=== PATIENT | female | born 1945 | race Caucasian/White ===

== ENCOUNTER 2018-09-13 11:53 | Outpatient (CLI) | payer MEDICARE, OTHER, SELFPAY ==
[2018-09-13 12:57] LABS: Bilirubin Negative (Negative); Blood Trace-intact (Negative); Clarity Clear; Glucose Negative (Negative); Ketones Negative (Negative); Leukocyte Esterase Negative (Negative); Nitrite Negative (Negative); Specific Gravity 1.015 (1.005-1.025); Urobilinogen 0.2 EU/dL (Up TO 0.2); pH 5.5 (5-8)
[2018-09-13 12:59] LABS: HCT 44.2 % (36.0-46.0); HGB 14.4 g/dL (12.0-15.5); Mean Corp. HGB Concentration 32.6 g/dL (32.0-36.0); Mean Corpuscular Hemoglobin 28.9 pg (27.0-33.0); Mean Corpuscular Volume 88.6 fL (80-95); Mean Platelet Volume 10.8 fL (8.0-11.0); Platelet Count 254 x1000/uL (130-400); RBC 4.99 m/cumm (4.00-5.20); RBC Distribution Width 13.3 % (11.7-14.6); White Blood Cell Count 7.94 k/cumm (4.4-10.8)
[2018-09-13 13:32] LABS: ALT 16 U/L (12-78); AST 19 U/L (15-37); Alkaline Phosphatase 55 U/L (46-116); Anion Gap 7.4 mmol/L (3-11); BUN 15 mg/dL (7-18); Bilirubin, Total 0.4 mg/dL (0.2-1.0); CO2 29.6 mmol/L (21.0-32.0); CREATININE 0.65 mg/dL (0.55-1.02); Calcium 10.1 mg/dL (8.5-10.1); Chloride 106 mmol/L (98-107); Cholesterol 288 mg/dL (50-200); Glucose 98 mg/dL (70-100); HDL Cholesterol 64 mg/dL (40-60); LDL CHOLESTEROL 184 mg/dL (<100); Potassium 4.9 mmol/L (3.5-5.1); Sodium 143 mmol/L (136-145); TSH (W/Ref FT4) 1.11 uIU/mL (0.358-3.74); Total Protein 7.6 g/dL (6.4-8.2); Triglyceride 162 mg/dL (30-150)
[2018-09-13 13:54] LABS: Bacteria Negative HPF (Negative); C & S Indicated? No; Casts Negative LPF (Negative); Crystals Negative HPF (Negative); Epithelial Cells Negative HPF (Negative); Mucus Negative (Negative); Other Cells Rare Renal (Negative); RBC 0-2 (0-2); WBC 0-2 HPF (0-5)
[2018-09-13 14:15] LABS: ESR 18 MM/HR (0-30)
== END 2018-09-13 12:13 ==
PROVIDERS: PCP Family Medicine; Visit Provider Family Medicine
DX: R30.0 Dysuria (principal); E78.00 Pure hypercholesterolemia, unspecified; K21.9 Gastro-esophageal reflux disease without esophagitis; K29.70 Gastritis, unspecified, without bleeding; G43.909 Migraine, unspecified, not intractable, without status migrainosus; M79.602 Pain in left arm
CPT/HCPCS: 36415; 80053; 80061; 83721; 85027; 85652; 81003; 81015; 84443

== ENCOUNTER 2018-09-22 00:08 | Outpatient (CLI) | payer MEDICARE, OTHER, SELFPAY ==
--- NOTE | 2018-09-22 06:53 | MERGEMPI_ITS ---
*[facility]* *[facility]* [address] [place] [address] Myocardial Perfusion Imaging - SPECT Jeremiah protocol Date of study: 09/22/2018 *PATIENT PRESENTATION* Height: 152.4cm (60in) Blood Pressure: Weight: 53.6kg (118lb) BSA: 1.52m^2 Referring physician: Kwan Smith Ordering physician: Shanta Yarbrough Impressions: - Normal perfusion and contraction by Tc99m Sestamibi Imaging. - Frequent atrial ectopy. Summary: 1. Myocardial perfusion imaging: No myocardial perfusion defects noted. 2. The calculated left ventricular ejection fraction after stress: 75%. LV global systolic function is normal. No left ventricular regional motion abnormality. 3. Stress ECG conclusions: The stress ECG is negative. Frequent atrial ectopy. 4. Stress: There is a normal resting blood pressure with an appropriate response to stress. Dull ache chest pain at baseline, unchanged with exercise. Exercise capacity is normal for age. Indication: R07.9. History: REASON FOR VISIT: PT REPORTS EPIGASTRIC PAIN, LIGHTHEADEDNESS, PAIN IN THE MIDDLE OF HER BACK, NAUSEA AND SEEING SPOTS IN EYES FOR MONTHS. SHE ALSO REPORTS ACHING AND HEAVINESS IN HER LEFT ARM FOR THE PAST 1-2 MONTHS, SPONTANEOUS SWEATS AND SOB WHEN BENDING OVER. AT TODAY'S VISIT PT REPORTS A SUB STERNAL DULL ACHE THAT IS RADIATING TOWARDS HER BACK. SHE DESCRIBES THE BACK PAIN SHARP. PT ALSO REPORTS LEFT ARM HEAVINESS. PT RATES THIS DISCOMFORT A 3 OUT OF 10 SHE REPORTS ACTIVITY DOES NOT MAKE IT ANY WORSE. SHE REPORTS SHE EXERCISES ALL THE TIME. Risk factors: FATHER HAD A QUADRUPLE BIPASS IN HIS 80'S AND 2 YEARS LATER. Family history of coronary artery disease. Dyslipidemia. Cholesterol: 288mg/dl. HDL: 64mg/dl. LDL: 184mg/dl. Triglycerides: 162mg/dl. ALLERGIES: METRONIDAZOLE. PENICILLINS. SULFA. CLARITHROMYCIN. PANTOPRAZOLE. DOXYCYCLINE. CEFUROXIME. MEDICATIONS: ACETAMINOPHEN 500 MG DAILY PRN. CHOLECALCIFEROL 2,000 UNITS DAILY. GABAPENTIN 1 -3 CAPS TID PRN. IBUPROFEN 3 TABS PRN. PROAIR HFA 1 -2 PUFFS Q 6 HRS PRN. Imaging Technique: Protocol: Jeremiah protocol. Acquisition: Gated SPECT; 1 day - rest/stress. The patient was imaged in the supine position. Attenuation correction used. Isotope administration: - Rest. Tc[99m]-sestamibi. Dose: 10.1mCi. Injection time: 09:15 AM. Injection to stress time: 00:45. - Stress. Tc[99m]-sestamibi. Dose: 31mCi. Injection time: 11:00 AM. 1-2 min before end of exercise Baseline ECG: SINUS RHYTHM. HR 81 BPM. T-WAVES INVERTED IN LEAD V1. Stress protocol: + +---+ + !Stage !HR !BP (mmHg) ! + +---+ + !Baseline supine !81 !140/82 (101)! + +---+ + !Baseline standing !88 !140/80 (100)! + +---+ + !Stage I; 1.7mph, 10degrees; 3 min !138!150/72 (98) ! + +---+ + !Stage II; 2.5mph, 12degrees; 3 min!158!180/80 (113)! + +---+ + !Immediate post stress !135! ! + +---+ + !Recovery; 1 min !---!180/70 (107)! + +---+ + !Recovery; 3 min !106!162/76 (105)! + +---+ + !Recovery; 6 min !101!130/80 (97) ! + +---+ + * Stress results: Maximal heart rate during stress was 167bpm (112% of maximal predicted heart rate). The maximal predicted heart rate was 149bpm. There is a normal resting blood pressure with an appropriate response to stress. The rate-pressure product for the peak heart rate and blood pressure was 64761hy Hg/min. Dull ache chest pain at baseline, unchanged with exercise. Exercise capacity is normal for age. Stress ECG: TREADMILL PORTION OF STRESS TEST ENDED IN 6 MINUTES & 1 SECOND BECAUSE PATIENT REACHED 100% OF HER TARGET HR. NORMAL HEART RATE AND BLOOD PRESSURE RESPONSE TO EXERCISE. MAX HR = 167 % OF TARGET = 112 FREQUENT PACs. BURSTS OF SVT AT IMMEDIATE RECOVERY. APPROXIMATE METS ACHIEVED = 7.05 DULL ACHE IN CHEST RADIATING STRAIGHT THROUGH TO BACK ASSOCIATED WITH LEFT ARM HEAVINESS AT BASELINE. THIS CHEST DISCOMFORT DID NOT WORSEN WITH EXERCISE. BACK PAIN SUBSIDED WITH EXERCISE PER PT REPORT. NO SIGNIFICAN ST SEGMENT CHANGES. FREQUENT BRIEF INTERMITTENT BURSTS OF SVT NOTED FROM IMMEDIATE RECOVERY UP UNTILL 3 MINUUTES RECOVERY. AVERAGEFUNCTIONAL CAPACITY FOR EXERCISE. The stress ECG is negative. Frequent atrial ectopy. Multiple episodes of nonsustained supraventricular tachycardia. Myocardial perfusion: Imaging information: gated. Left ventricular size is normal. No myocardial perfusion defects noted. Ventricular Function (Wall Motion): The calculated left ventricular ejection fraction after stress: 75%. LV global systolic function is normal. No left ventricular regional motion abnormality. Study data: Kwan Smith MD supervised and was readily available during the procedure. This study was interpreted by [facility]. Study status: Routine. Consent: The risks, benefits, and alternatives to the procedure were explained to the patient and informed consent was obtained. Procedure: Initial setup. A baseline ECG was recorded. Surface ECG leads and manual cuff blood pressure measurements were monitored. Heart sounds: Normal. Lung sounds: Normal. Treadmill exercise testing was performed using the Jeremiah protocol. Study completion: All catheters inserted during the procedure were removed. The patient tolerated the procedure well and was discharged from the lab. Discharge: The patient left the laboratory in stable condition. Birthdate: Patient birthdate: 1945. Sex: Gender: female. Study date: Study date: 09/22/2018. Study time: 00:01 AM. Signature Documentation: - The imaging portion of this study was interpreted by Nuclear Post Doctoral Fellow Kwan Smith MD. - The Stress ECG portion of this study was interpreted by Kwan Smith MD. Electronically signed by Kwan Smith 09/22/2018 16:02
== END 2018-09-22 00:28 ==
PROVIDERS: PCP Family Medicine; Visit Provider Family Medicine
DX: R07.9 Chest pain, unspecified (principal); R06.02 Shortness of breath; R10.13 Epigastric pain; E78.5 Hyperlipidemia, unspecified; R42 Dizziness and giddiness
CPT/HCPCS: 78452; 93016; 93018; 93017

== ENCOUNTER 2018-09-26 00:38 | Outpatient (CLI) | payer MEDICARE, OTHER, SELFPAY ==
--- NOTE | 2018-09-26 09:24 | DI.US_ITS ---
SYMPTOMS/DIAGNOSIS: EPIGASTRIC PAIN, R10.13 ABDOMEN ULTRASOUND: Comparison is made with [id number]. The liver is normal in size and echogenicity. No focal liver lesions or biliary dilatation is seen. The gallbladder is unremarkable, without evidence of stones or wall thickening. A cyst is noted at the upper pole of the left kidney measuring 4.7 cm. No hydronephrosis or calculi are seen. The spleen is normal in size. The aorta is normal in diameter. There is no right upper quadrant fluid. IMPRESSION: No acute abnormality. Left renal cyst is again noted.
== END 2018-09-26 00:58 ==
PROVIDERS: PCP Family Medicine; Visit Provider Family Medicine
DX: R10.13 Epigastric pain (principal); N28.1 Cyst of kidney, acquired
CPT/HCPCS: 76700

== ENCOUNTER 2019-01-09 00:19 | Outpatient (CLI) | payer MEDICARE, SELFPAY ==
--- NOTE | 2019-01-09 12:27 | DI.MAMMO_ITS ---
SYMPTOMS/DIAGNOSIS: SCREENING, Z12.31 MAMMOGRAMS: Mammograms were interpreted according to the usual protocol including computer analysis with CAD system, tomosynthesis and C view imaging. The breast tissue is of moderate radiodensity. There is no dominant mass. There are no suspicious calcifications and there has been no significant interval change when compared with prior images. SUMMARY: No evidence of malignancy, category 1. Yearly screening mammography is recommended. Breast density category B. SA ASSESSMENT OF FINDINGS: Negative. Category 1. Patient will receive a letter notifying them of these results. BI-RADS category B. There are scattered areas of fibroglandular density.
== END 2019-01-09 00:39 ==
PROVIDERS: PCP Family Medicine; Visit Provider Family Medicine
DX: Z12.31 Encounter for screening mammogram for malignant neoplasm of breast (principal)
CPT/HCPCS: 77063; 77067

== ENCOUNTER 2020-08-01 08:14 | Outpatient (CLI) | payer MEDICARE, SELFPAY ==
[2020-08-02 15:32] LABS: COVID-19 RT-PCR UVMMC Result Negative (Negative)
== END 2020-08-01 08:34 ==
PROVIDERS: PCP Family Medicine; Visit Provider Family Medicine
DX: Z20.828 Contact with and (suspected) exposure to other viral communicable diseases (principal)
CPT/HCPCS: U0003

== ENCOUNTER 2020-08-21 01:21 | Outpatient (CLI) | payer MEDICARE, OTHER, SELFPAY ==
--- NOTE | 2020-08-21 06:30 | DI.US_ITS ---
EXAM: US ABDOMEN CLINICAL HISTORY: epigastric ABD PAIN,R10.9 TECHNIQUE: Ultrasound of complete upper abdomen performed using standard protocol. COMPARISON: US US ABDOMEN from 09/26/2018 FINDINGS: There is no ascites evident. LIVER: There are no hepatic lesions evident nor obvious dilatation of intrahepatic ducts. GALLBLADDER/BILIARY: There are no gallstones. No gallbladder wall edema nor pericholecystic fluid. The common hepatic duct isnot dilated, measuring 3-4mm at the level of juan hepatis. PANCREAS: There is no evidence of pancreatic mass nor dilatation of the pancreatic duct. SPLEEN: The spleen is not enlarged and there are no intrasplenic lesions evident. KIDNEYS:Right kidney appears unremarkable. Left kidney again exhibits a superior pole cyst which pre sently measures approximately 4.6 x 5.6 x 5.1 centimeter, exhibiting minimal change from the previous study. There appears to be mild mural calcification and mild internal septation. However, predomin ately cystic. Bosniak type 2 ABDOMINAL AORTA: Atherosclerotic but no aneurysm IVC: Normal diameter where visualized. IMPRESSION: 1. No evidence of cholelithiasis nor dilatation of the biliary tree. 2. 5.6 diameter Bosniak-type 2 left renal cystic structure noted, exhibiting minimal any significant change compared to ultrasound examination September 2018. Recommend continued periodic follow-up. 3. No other significant ultrasound findings in the upper abdomen and no ascites. DATA REPOSITORY:
== END 2020-08-21 01:41 ==
PROVIDERS: PCP Family Medicine; Visit Provider Family Medicine
DX: R10.13 Epigastric pain (principal); N28.1 Cyst of kidney, acquired
CPT/HCPCS: 76700

== ENCOUNTER 2021-08-21 10:50 | Outpatient (CLI) | payer MEDICARE, OTHER, SELFPAY ==
--- NOTE | 2021-08-21 10:45 | RT.EKG_ITS ---
APPROVED REPORT Exam: Resting ECG Reason for Exam: chest pain Patient Location: O HR:86 bpm ECG Measurements Heart Rate 86 AXIS SD 175 P 31 QRSd 87 QRS 14 QT 407 T 0 QTc 486 Conclusion Sinus rhythm...normal P axis, V-rate 60- 99 Normal Electrocardiogram
== END 2021-08-21 10:51 | disposition home or self-care (01) ==
LOC: DI.CM 10:51
PROVIDERS: PCP Family Medicine; Visit Provider Family Medicine
DX: R07.9 Chest pain, unspecified (principal)
CPT/HCPCS: 93010

== ENCOUNTER 2021-08-25 22:40 | Outpatient (CLI) | payer MEDICARE, OTHER, SELFPAY ==
--- NOTE | 2021-08-25 08:45 | DI.MAMMO_ITS ---
Exam(s) MAMMO SCREENING EXAM: MAMMO SCREENING CLINICAL HISTORY: screening, z12.39 TECHNIQUE: Mammograms were interpreted according to the usual protocol including computer analysis w [employer] CAD system, tomosynthesis and C-view imaging. COMPARISON: 2012 through 2018 FINDINGS: The breasts are composed of scattered fibroglandular densities, Breast Density category B. No suspicious masses or suspicious microcalcifications are seen. No skin thickening or abnormal axillary lymph nodes are seen. There has been no significant change from prior exams. IMPRESSION: BI-RADS Category 1, Negative mammogram Yearly screening mammography is recommended. Breast Density - Category B, scattered fibroglandular densities. A negative radiographic report should not delay biopsy if a dominant or clinically suspicious mass is present. Up to ten percent of cancers are not identified on mammography. A negative report may reinforce clinical impression. Adenosis and dense breasts may obscure an underlying neoplasm. False positive reports average 6 to 10%. Patient will receive a letter notifying them of these results.
== END 2021-08-25 23:00 ==
PROVIDERS: PCP Family Medicine; Visit Provider Family Medicine
DX: Z12.31 Encounter for screening mammogram for malignant neoplasm of breast (principal)
CPT/HCPCS: 77063; 77067

== ENCOUNTER 2021-09-01 14:55 | Emergency (ER) | payer MEDICARE, OTHER, SELFPAY ==
[2021-09-01] VITALS (12 sets, daily range): BP systolic 164–207; BP diastolic 85–90; PULSE 71–90; RESP 13–25; TEMP 37.4; O2SAT 96–99
--- NOTE | 2021-09-01 14:45 | RT.EKG_ITS ---
APPROVED REPORT Exam: Resting ECG Reason for Exam: Chest Pain Patient Location: E HR:91 bpm ECG Measurements Heart Rate [address] 171 P 34 QRSd 87 QRS 2 QT 384 T -3 QTc 471 Conclusion Sinus rhythm...normal P axis, V-rate 60- 99 Atrial premature complexes...SV complexes w/ short R-R intvls
--- NOTE | 2021-09-01 15:15 | DI.RAD_ITS ---
Exam(s) XR PORTABLE CHEST AP EXAM: XR PORTABLE CHEST AP CLINICAL HISTORY: PUI, CP, SOB TECHNIQUE: 2D digital imaging was performed of the chest. One image was obtained. An AP view was ob tained. COMPARISON: CR,RF BARIUM SWALLOW W PA LAT CXR from 01/09/2010 FINDINGS: MEDIASTINUM: Normal. HEART: Normal. PULMONARY VASCULATURE: Normal. LUNGS: Clear. PLEURAL SPACE: No pleural effusion or pneumothorax. BONE:Within normal limits for the patient's age. OTHER FINDINGS:Normal. IMPRESSION: No acute pulmonary findings. DATA REPOSITORY: RADIATION DOSE DELIVERED:
[2021-09-01 15:18] LABS: Abs Immature Grans 0.01 10^3/uL (0.0-0.06); Absolute Basophil Count 0.04 10^3/uL (0.0-0.2); Absolute Eosinophil Count 0.07 10^3/uL (0.0-0.7); Absolute Lymphocyte Count 1.78 10^3/uL (1.2-3.4); Absolute Monocyte Count 0.46 10^3/uL (0.1-0.8); Absolute Neutrophil Count 4.15 10^3/uL (1.2-6.7); Basophils % 0.6; Eosinophils % 1.1; HCT 48.5 % (36.0-46.0); HGB 15.5 g/dL (11.2-15.7); Immature Grans % 0.2; Lymphocytes % 27.3; MCH 28.5 pg (27.0-33.0); MCV 89.3 fL (80-95); MPV 10.3 fL (8.0-11.0); Monocytes % 7.1; Neutrophils % 63.7; Nucleated RBC 0 %; Platelet Count 279 10^3/uL (130-400); RBC 5.43 10^6/uL (3.93-5.22); RDW-SD 42.6 fL; WBC 6.51 10^3/uL (4.4-10.8)
--- NOTE | 2021-09-01 15:26 | ED.GENADUL_ITS ---
Discharge Plan Disposition Patient Disposition: HOME Condition: Stable Discharge Details Clinical Impression: Chest pain Primary Care Provider: Shanta Yarbrough ED Provider: Luanne Torres Home Meds and New Rx's Prescriptions: Continued famotidine 20 mg tablet 20 mg PO BID Qty: 60 RF: 2 sertraline 25 mg tablet 25 mg PO DAILY Qty: 30 RF: 1 No Action gabapentin [Neurontin] 300 mg capsule 900 mg PO TID PRN (Reason: trigeminal neuralgia) Qty: 90 RF: 0 pantoprazole [Protonix] 40 mg tablet,delayed release (DR/EC) 40 mg PO DAILY Qty: 30 RF: 1 ibuprofen 200 MG tablet 3 tab PO PRN RF: 0 Discharge Instructions Instructions: Chest Pain (ED) Additional Instructions: Workup shows no indication of heart damage as a cause for your chest pain. Please follow-up with your primary care provider as indicated. Follow up with primary care provider in 3-5 days. Return to ED sooner if any worsening or concerns. Increase oral fluids. Please take Tylenol or Ibuprofen with food every 4-6 hours as needed for pain and swelling. Referrals: Shanta Yarbrough MD, [place] [Primary Care Provider] - 3 days Discharge Data Discharge Date/Time-TO BE ENTERED AT DEPARTURE: 09/01/21 17:55 Medical Decision Making 36-year-old female presents with ER midsternal left-sided chest pain which has been getting worse for the last few weeks. She reports the radial her back. She has been seen by her clinic and has diagnosed with GERD as tried Protonix with little to no relief in place on Pepcid she also states has not helped. She also endorses some nausea, shortness of breath with exertion and a dry cough. Denies any vomiting or diarrhea. Denies any fever. She is vaccinated for COVID. She states that she does have a intermittent shooting pains into her left side of her chest. No significant past medical history. She has a history of vitamin D deficiency, osteoporosis, tubular adenoma of colon, interstitial cy stitis, GERD. She is not a smoker she does endorse occasional marijuana. Cardiac work-up ordered serial troponins, 324 mg aspirin. Covid swab ordered. CBC shows no leukocytosis, CMP largely within normal limits. Initial troponin within normal limits. D-dimer is 440. Covid is negative. MinimalEXAM: XR PORTABLE CHEST AP CLINICAL HISTORY: PUI, CP, SOB TECHNIQUE: 2D digital imaging was performed of the chest. One image was obtained. An AP view was obtained. COMPARISON: CR,RF BARIUM SWALLOW W PA LAT CXR from 01/09/2010 FINDINGS: MEDIASTINUM: Normal. HEART: Normal. PULMONARY VASCULATURE: Normal. LUNGS: Clear. PLEURAL SPACE: No pleural effusion or pneumothorax. BONE:Within normal limits for the patient's age. OTHER FINDINGS:Normal. IMPRESSION: No acute pulmonary findings. 1645: Patient reevaluation she is still complaining of some external burning rating 5 out of 10. Will order nitro. 1709: Patient reports no change in the chest pain however she is complaining of a headache and some nausea. Airway tissue l Tylenol Zofran and GI cocktail ordered which patient declined at this time Serial troponin came back negative patient discharged with home care follow-up and return instructions. This text was generated using Mobi dictation system, please disregard any oddities of phrase or misspellings. Lab Data Lab results reviewed: Yes I reviewed the patient's lab results. Lab results narrative: Laboratory Tests Range/Units 09/01/21 09/01/21 09/01/21 15:05 15:05 15:05 WBC (4.4-10.8) 10^3/uL 6.51 RBC (3.93-5.22) 10^6/uL 5.43 H Hgb (11.2-15.7) g/dL 15.5 Hct (36.0-46.0) % 48.5 H MCV (80-95) fL 89.3 MCH (27.0-33.0) pg 28.5 MCHC (32.0-36.0) % 32.0 RDW (11.7-14.6) % 13.0 Plt Count (130-400) 10^3/uL 279 MPV (8.0-11.0) fL 10.3 Immature Gran % 0.2 Neutrophils % 63.7 Lymphocytes % 27.3 Monocytes % 7.1 Eosinophils % 1.1 Basophils % 0.6 Nucleated RBC % % 0 Absolute Neutrophils (1.2-6.7) 10^3/uL 4.15 Absolute Lymphocytes (1.2-3.4) 10^3/uL 1.78 Absolute Monocytes (0.1-0.8) 10^3/uL 0.46 Absolute Eosinophils (0.0-0.7) 10^3/uL 0.07 Absolute Basophils (0.0-0.2) 10^3/uL 0.04 D-Dimer (<500) ng/mlFEU 440 Sodium (136-145) mmol/L 142 Potassium (3.5-5.1) mmol/L 3.5 Chloride (98-107) mmol/L 105 Carbon Dioxide (21.0-32.0) mmol/L 28.8 Anion Gap (3-11) mmol/L 8.2 BUN (7-18) mg/dL 18 Creatinine (0.55-1.02) mg/dL 0.7 Estimated GFR/1.73 m2 (mL/min/1.73m2) >= 60.00 Glucose (74-106) mg/dL 104 Calcium (8.5-10.1) mg/dL 10.2 H Magnesium (1.8-2.4) mg/dL 2.3 Total Bilirubin (0.2-1.0) mg/dL 0.4 AST (15-37) U/L 20 ALT (14-59) U/L 18 Alkaline Phosphatase (46-116) U/L 54 Troponin I (<or=60) ng/L < 50 Total Protein (6.4-8.2) g/dL 8.0 Albumin (3.4-5.0) g/dL 4.3 COVID-19 Source SARS-CoV-2 (PCR) (Negative) Range/Units 09/01/21 15:20 WBC (4.4-10.8) 10^3/uL RBC (3.93-5.22) 10^6/uL Hgb (11.2-15.7) g/dL Hct (36.0-46.0) % MCV (80-95) fL MCH (27.0-33.0) pg MCHC (32.0-36.0) % RDW (11.7-14.6) % Plt Count (130-400) 10^3/uL MPV (8.0-11.0) fL Immature Gran % Neutrophils % Lymphocytes % Monocytes % Eosinophils % Basophils % Nucleated RBC % % Absolute Neutrophils (1.2-6.7) 10^3/uL Absolute Lymphocytes (1.2-3.4) 10^3/uL Absolute Monocytes (0.1-0.8) 10^3/uL Absolute Eosinophils (0.0-0.7) 10^3/uL Absolute Basophils (0.0-0.2) 10^3/uL D-Dimer (<500) ng/mlFEU Sodium (136-145) mmol/L Potassium (3.5-5.1) mmol/L Chloride (98-107) mmol/L Carbon Dioxide (21.0-32.0) mmol/L Anion Gap (3-11) mmol/L BUN (7-18) mg/dL Creatinine (0.55-1.02) mg/dL Estimated GFR/1.73 m2 (mL/min/1.73m2) Glucose (74-106) mg/dL Calcium (8.5-10.1) mg/dL Magnesium (1.8-2.4) mg/dL Total Bilirubin (0.2-1.0) mg/dL AST (15-37) U/L ALT (14-59) U/L Alkaline Phosphatase (46-116) U/L Troponin I (<or=60) ng/L Total Protein (6.4-8.2) g/dL Albumin (3.4-5.0) g/dL COVID-19 Source Nasal/Nares SARS-CoV-2 (PCR) (Negative) Negative HPI General Mode of arrival: ambulatory . Date/Time Provider Initiated Documentation: 09/01/21 14:59 . Limitations to Documentation: no limitations . Information obtained by: patient, RN notes reviewed and old records reviewed . HPI Narrative: 36-year-old female presents with ER midsternal left-sided chest pain which has been getting worse for the last few weeks. She reports the radial her back. She has been seen by her clinic and has diagnosed with GERD as tried Protonix with little to no relief in place on Pepcid she also states has not helped. She also endorses some nausea, shortness of breath with exertion and a dry cough. Denies any vomiting or diarrhea. Denies any fever. She is vaccinated for COVID. She states that she does have a intermittent shooting pains into her left side of her chest. No significant past medical history. She has a history of vitamin D deficiency, osteoporosis, tubular adenoma of colon, interstitial cystitis, GERD. She is not a smoker she does endorse occasional marijuana. Related Data Home Medications Medication Instructions Recorded Confirmed ibuprofen 3 tab PO PRN tab-cap 01/09/13 08/21/21 gabapentin 300 mg capsule 900 mg PO TID PRN #90 tab-cap 21 09/01/21 pantoprazole 40 mg tablet,delayed 40 mg PO DAILY #30 tab 08/19/21 08/19/21 release famotidine 20 mg tablet 20 mg PO BID #60 tab 08/21/21 09/01/21 sertraline 25 mg tablet 25 mg PO DAILY #30 tab 08/21/21 08/21/21 Previous Rx's Medication Instructions Recorded gabapentin 300 mg capsule 900 mg PO TID PRN #90 tab-cap 06/23/21 pantoprazole 40 mg tablet,delayed 40 mg PO DAILY #30 tab 08/19/21 release famotidine 20 mg tablet 20 mg PO BID #60 tab 08/21/21 sertraline 25 mg tablet 25 mg PO DAILY #30 tab 08/21/21 Allergies Allergy/AdvReac Type Severity Reaction Status Date / Time metronidazole Allergy Severe NUMBNESS Unverified 08/21/21 10:47 IN LEGS Penicillins Allergy Severe Unverified 08/21/21 10:47 Sulfa (Sulfonamide Allergy Intermediate SKIN RASH Unverified 08/21/21 10:47 Antibiotics) clarithromycin [From Biaxin] AdvReac Intermediate Heart Unverified 08/21/21 10:47 palpitations, Insomnia pantoprazole sodium AdvReac Intermediate Muscle Unverified 08/21/21 10:47 [From Protonix] cramping doxycycline AdvReac Mild NAUSEA Unverified 08/21/21 10:47 cefuroxime AdvReac Unknown VOMITED Unverified 08/21/21 10:47 General Stated Complaint: Chest Pain DELLA: 2 Review of Systems All systems reviewed & are unremarkable except as noted in HPI and below Cardiovascular Cardiovascular: Reports chest pain, Reports diaphoresis and Reports dyspnea on exertion Respiratory Respiratory: Reports cough and Reports dyspnea on exertion PFSH All Active Problems (Updated 09/01/21 @ 18:28 by Luanne Torres) Chest pain (Acute) Abdominal pain (Acute) Impacted cerumen of both ears (Acute) Left arm pain (Acute) Gastritis (Chronic) Dr. Kitchen; chronic gastritis ; reflux Gastroesophageal reflux disease without esophagitis (Chronic) mild inflammation per EGD 06/26/10 Interstitial cystitis (Chronic) Low back pain (Chronic) Migraine (Chronic) Osteoporosis (Chronic) Trigeminal neuralgia (Chronic) Tubular adenoma of colon (Chronic 08/18/16) Vaginal atrophy (Chronic 06/08/16) Vitamin D deficiency disease (Chronic) Medical History Chronic sinusitis Sinus CT--b/l mild maxillary sinusitis; 12/28 facial pain following extraction Cyst of ovary 05/30/10 Epigastric pain Gastritis GERD (gastroesophageal reflux disease) Left breast mass 09/27/17 Left ear impacted cerumen 09/27/17 Low back pain Palpitations pvc's Squamous papilloma 08/18/16 Trigeminal neuralgia Vertigo Surgical History Colonoscopy - MAC (08/18/16) EGD - MAC (08/18/16) Family History Mother , 97 Heart disease Colon cancer Father , 85 Pancreatic cancer Brother No problems noted. Maternal Grandfather , 70 Heart disease Asthma Lung cancer Paternal Grandfather Smoker Maternal Grandmother Diabetes Paternal Grandmother Breast cancer Son No problems noted. Son No problems noted. Son No problems noted. Social History Smoking/Tobacco Use Status: Never Second Hand Exposure: No Smoking risk assessment performed?: Yes Alcohol Intake: current Alcohol Intake frequency: a few times a week Alcohol type: wine and hard liquor Drug use: Occasionally Substance use type: marijuana Household members: significant other Housing: house Pets and animals: Yes Pets and animals: dog(s) What is your relationship status?: How often do you talk on the phone with friends or family?: three or more times per week How often do you get together with friends or relatives?: three or more times per week How often do you attend roman catholic or adventism services?: decline to answer Do you belong to any clubs or organized social groups?: yes Panel score (0-1 are the most socially isolated patients): 3 What type of physical activity do you participate in: walking Duration: 45-60 minutes/day Frequency: 3-4 times per week Angelica/Gnosticism: Adventism Special angelica needs: No Seatbelt use: always Do you feel safe at home: Yes Do you feel safe in your relationship?: Yes Exam Narrative Exam Narrative: Constitutional: Alert and oriented x3. Appears stated age. Normal body habitus. Head: Normocephalic, no trauma. Eyes: Pupils PERRL, Red reflex noted, EOM's intact. Eyelids symmetrical without lesions, discharge, or swelling. ENT: Bilateral TM's WNL, External ear normal to inspection, no mastoid TTP, swelling, or erythema, Nasal turbinates WNL, no nasal discharge. Normal dentition, Posterior pharynx WNL, no exudate. Chest: RRR, Normal S1, S2, distal pulses intact. Resp: Lungs clear to auscultation bilaterally, no wheezes, rales, or rhonchi. Abdomen: Soft, non-distended, Normoactive bowel sounds all 4 quads. Musculoskeletal: Normal gait, 5/5 strength to all four extremities. Skin: No suspicious rashes or lesions. Capillary refill less than 2 sec. Neurologic: Cranial nerves II-XII intact. Alert and oriented x 3. Motor: No deficits noted. Sensory: Intact bilaterally all 4 extremities. Reflexes: DTR's intact bilaterally.. Hematologic/Lymphatic: No ecchymosis, no lymphadenopathy. Course Vital Signs Vital signs: Vital Signs Temperature 37.4 C 09/01/21 15:04 Pulse 90 09/01/21 15:04 Respiratory Rate 18 09/01/21 15:04 Blood Pressure 207/90 H 09/01/21 15:04 Pulse Oximetry 98 09/01/21 15:04 Temperature 37.4 C 09/01/21 15:04 Temperature Source Temporal Artery Scan 09/01/21 15:04 Pulse 90 09/01/21 15:04 Respiratory Rate 18 09/01/21 15:04 Respiratory Effort 09/01/21 15:13 Respiratory Depth Normal 09/01/21 15:13 Respiratory Pattern Normal 09/01/21 15:13 Blood Pressure 207/90 H 09/01/21 15:04 Blood Pressure Position Sitting 09/01/21 15:04 Pulse Oximetry 98 09/01/21 15:04 Oxygen Delivery Method Room Air 09/01/21 15:04 Oxygen Flow Rate 0 09/01/21 15:04
[2021-09-01 15:28] LABS: Source Nasal/Nares
[2021-09-01 15:30] LABS: ALT 18 U/L (14-59); AST 20 U/L (15-37); Albumin 4.3 g/dL (3.4-5.0); Alkaline Phosphatase 54 U/L (46-116); Anion Gap 8.2 mmol/L (3-11); BUN 18 mg/dL (7-18); Bilirubin, Total 0.4 mg/dL (0.2-1.0); CO2 28.8 mmol/L (21.0-32.0); CREATININE 0.7 mg/dL (0.55-1.02); Calcium 10.2 mg/dL (8.5-10.1); Chloride 105 mmol/L (98-107); Glucose 104 mg/dL (74-106); Magnesium 2.3 mg/dL (1.8-2.4); Potassium 3.5 mmol/L (3.5-5.1); Sodium 142 mmol/L (136-145); Troponin I < 50 ng/L (<or=60)
[2021-09-01] MEDS: Aspirin 81 MG CHEW 324 MG CH (15:37)
[2021-09-01 15:53] LABS: D-Dimer 440 ng/mlFEU (<500)
[2021-09-01 16:16] LABS: COVID-19 PCR Negative (Negative)
[2021-09-01] MEDS: nitroGLYcerin 0.4 MG TAB SL (17:51)
[2021-09-01 18:22] LABS: Troponin I < 50 ng/L (<or=60)
== END 2021-09-01 18:43 | disposition home or self-care (01) ==
PROVIDERS: Emergency Provider Registered Nurse Emergency; PCP Family Medicine
DX: R07.9 Chest pain, unspecified (principal); R10.13 Epigastric pain; R06.02 Shortness of breath; Z20.822 Contact with and (suspected) exposure to COVID-19
CPT/HCPCS: 80053; 87635; 93005; 99283; 99284; 71045; 83735; 84484; 85025; 85379; 93010

== ENCOUNTER → 2022-01-12 08:24 | Outpatient (BNVA) | payer MEDICARE, OTHER, SELFPAY | PROVIDERS: Referring Provider Family Medicine; Visit Provider Surgery | DX: K43.9 Ventral hernia without obstruction or gangrene (principal) | CPT/HCPCS: 99213 ==